=== PATIENT | male | born 1990 | race Caucasian/White ===

== ENCOUNTER 2017-12-24 02:07 | Emergency (ER) | payer MEDICAID ==
[~2017-12-24] VITALS: Ht 175.3 cm; Wt 59.0 kg
--- NOTE | 2017-12-24 02:22 | NUR ---
PER LAUREEN AT [facility] INTAKE PATIENT CAN HAVE A BED AT [facility] ONCE THEY ARE MEDICALLY CLEARED. SHE WILL NEED FACE SHEET FAXED TO [phone]. DIRECT LINE TO [facility] INTAKE [phone].
--- NOTE | 2017-12-24 02:30 | NUR ---
PT BBSELF FROM STREETS. PT HAVING AUDITORY HALLUCINATIONS. +SI, -HI. PT STATES "I'M HEARING VOICES AND SPIRITS TELLING ME TO OVERDOSE ON HEROIN". PT STATES HIS LAST DOSE OF HEROIN WAS ABOUT 6 HOURS AGO. PT ALSO STATES HE HAS BEEN TAKING METH AND WEED. PT IS AAOX4. RESPIRATIONS EVEN AND UNLABORED. SKIN WARM AND INTACT. NO ACUTE DISTRESS NOTED AT THIS TIME. WILL CONTINUE TO MONITOR
--- NOTE | 2017-12-24 02:33 | NUR ---
URINE COLLECTED, CALLED LAB FOR POLYMER SPECIALIST
--- NOTE | 2017-12-24 02:40 | NUR ---
SANITARY ENGINEER AT BEDSIDE FOR BLOOD DRAW
[2017-12-24 03:04] LABS: BASOPHILS % (AUTO) 0.3 % (0.0-2.0); EOSINOPHILS % (AUTO) 1.1 % (0.0-6.0); HEMATOCRIT 42 % (39-51); HEMOGLOBIN 14.1 g/dL (13.5-17.5); LYMPHOCYTES # (AUTO) 2.1 /CMM (0.8-4.8); LYMPHOCYTES % (AUTO) 25.2 % (20.0-44.0); MEAN CORPUSCULAR HGB CONC 33 g/dl (31.0-36.0); MEAN CORPUSCULAR VOLUME 93 fL (80-96); MONOCYTES % (AUTO) 11.4 % (2.0-12.0); NEUTROPHILS # (AUTO) 5.2 /CMM (1.8-8.9); PLATELET COUNT (AUTO) 338 /CMM (150-450); RDW COEFFICIENT OF VARIATION 12.7 (11.5-15.0); RED BLOOD CELL COUNT(AUTO) 4.56 MIL/uL (4.5-6.0); WHITE BLOOD COUNT (AUTO) 8.4 K/uL (4.3-11.0)
--- NOTE | 2017-12-24 03:18 | NUR ---
Yariel wylie in ED - 12/24/17 at 0325 by MEGHAN Patient discharged to home in stable condition. Written and verbal after care instructions given. Patient verbalizes understanding of instruction. Pt ambulatory with a steady gait
[2017-12-24 03:22] LABS: ALANINE AMINOTRANSFERASE 109 U/L (12-78); ALBUMIN 3.9 g/dL (3.4-5.0); ALKALINE PHOSPHATASE 70 U/L (46-116); ASPARTATE AMINOTRANSFERASE 41 U/L (15-37); BILIRUBIN,DIRECT 0.1 mg/dL (0.0-0.2); BILIRUBIN,TOTAL 0.4 mg/dL (0.2-1.0); CALCIUM, SERUM 8.8 mg/dL (8.5-10.1); CARBON DIOXIDE 26 mmol/L (21-32); CHLORIDE 100 mmol/L (98-107); CREATININE 0.8 mg/dL (0.6-1.3); GLUCOSE 90 mg/dL (74-106); POTASSIUM 3.8 mmol/L (3.5-5.1); SODIUM SERUM 135 mmol/L (136-145); TOTAL PROTEIN, SERUM 8.1 g/dL (6.4-8.2); UREA NITROGEN, BLOOD 13 mg/dL (7-18)
[2017-12-24 03:26] LABS: ACETAMINOPHEN < 2 ug/ml (10-30); ALCOHOL, BLOOD < 3 mg/dL (0-0); SALICYLATE < 2.8 mg/dL (2.8-20.0)
--- NOTE | 2017-12-24 04:29 | NUR ---
PT RESTING IN ER BED. EASILY AROUSABLE. PT AAOX4. RESPIRATIONS EVEN AND UNLABORED. NO ACUTE DISTRESS NOTED AT THIS TIME. VITAL SIGNS STABLE
--- NOTE | 2017-12-24 05:15 | NUR ---
CALLED [facility] FOR TRANSPORTATION TO [facility]. ETA [id number]
--- NOTE | 2017-12-24 05:23 | NUR ---
PT PLACED ON AMBULNZ WILL CALL
--- NOTE | 2017-12-24 06:04 | NUR ---
CALLED [facility] TO REACTIVATE BLS TRANSPORT. SPOKE WITH SALLY. NAVYA 45MIN-1 HOUR
--- NOTE | 2017-12-24 06:13 | NUR ---
GAVE REPORT TO MG FROM [facility] FOR [facility]
[2017-12-24 07:15] VITALS: BP 114/74
--- NOTE | 2017-12-24 07:22 | NUR ---
Patient does not wish to proceed with medical care recommended by Dr. Grimaldo. Patient given information related to possible complications, up to and including , which could occur as a result of leaving the hospital at this time. Patient verbalizes understanding of risks involved due to leaving against medical advice. Patient has signed AMA form. Dr. Grimaldo aware. Pt denies SI/HI at this time.
--- NOTE | 2017-12-24 07:29 | NUR ---
SPOKE WITH FABIAN FROM [facility] AND INFORMED THAT THE PT LEFT AMA
== END 2017-12-24 07:32 | disposition left against medical advice (07) ==
LOC: ER 02:07
DX: F15.10 Other stimulant abuse, uncomplicated (principal); F11.10 Opioid abuse, uncomplicated; F20.9 Schizophrenia, unspecified; F32.9 Major depressive disorder, single episode, unspecified
CPT/HCPCS: 36415; 71045; 80048; 80076; 80305; 80329; 84484; 85025; 93005; 99285; A4606; G0480 ×2; Z7610